=== PATIENT | male | born 1995 | race Caucasian/White ===

== ENCOUNTER 2020-02-10 23:00 | Emergency (ER) | payer OTHER ==
[~2020-02-10] VITALS: Ht 180.3 cm; Wt 70.4 kg
[2020-02-10] MEDS ORDERED: ALBUTEROL 90 MCG/ACT 8GM HFA INHALER INH ONE (23:30)
[2020-02-11 00:38] LABS: BASO # 0.1 10^3/uL (0.0-0.2); BASO % 0.6 % (0.0-1.0); EOS # 0.2 10^3/uL (0.0-0.5); EOS % 2.1 % (0.0-3.0); HEMATOCRIT 45.9 % (42.0-52.0); HEMOGLOBIN 15.7 g/dl (13.5-17.5); LYMPH # 1.9 10^3/uL (1.5-5.0); LYMPH % 24.2 % (24.0-44.0); MEAN CORPUSCULAR HEMOGLOBIN 29.3 pg (27.0-33.0); MEAN CORPUSCULAR HGB CONC 34.2 g/dl (32.0-36.5); MEAN CORPUSCULAR VOLUME 85.6 fl (80.0-96.0); MONO # 0.7 10^3/uL (0.0-0.8); MONO % 8.4 % (0.0-5.0); NEUTROPHILS # 5.1 10^3/uL (1.5-8.5); NEUTROPHILS % 64.6 % (36.0-66.0); PLATELET COUNT, AUTOMATED 318 10^3/uL (150-450); RED BLOOD COUNT 5.36 10^6/uL (4.30-6.10); WHITE BLOOD COUNT 7.9 10^3/uL (4.0-10.0)
[2020-02-11 00:48] LABS: ALBUMIN 4.6 GM/DL (3.2-5.2); ALT/SGPT 23 U/L (12-78); BILIRUBIN,DIRECT 0.2 MG/DL (0.0-0.2); BILIRUBIN,TOTAL 0.6 MG/DL (0.2-1.0); BLOOD UREA NITROGEN 12 MG/DL (7-18); CALCIUM LEVEL 9.4 MG/DL (8.5-10.1); CARBON DIOXIDE LEVEL 27 MEQ/L (21-32); CHLORIDE LEVEL 108 MEQ/L (98-107); GLOMERULAR FILTRATION RATE > 60.0 (>60); GLUCOSE, FASTING 87 MG/DL (70-100); LIPASE 82 U/L (73-393); POTASSIUM SERUM 4.1 MEQ/L (3.5-5.1); SODIUM LEVEL 140 MEQ/L (136-145); TOTAL PROTEIN 7.9 GM/DL (6.4-8.2)
[2020-02-11] MEDS ORDERED: PROAAER10 INH (01:43)
[2020-02-11 02:36] VITALS: BP 140/76
--- NOTE | 2020-02-11 08:13 | REP ---
Portable chest x-ray: Single view. History: Shortness of breath. No comparison study. Findings: The lungs are well inflated and clear. Pleural angles are sharp. Heart size is normal. Pulmonary vasculature is not increased. No significant bony abnormality. Impression: No active disease. Electronically Signed by Ramón Vora MD 02/11/2020 08:05 A
== END 2020-02-11 02:34 | disposition home or self-care (01) ==
LOC: M ED 23:00
DX: J06.9 Acute upper respiratory infection, unspecified (principal)
CPT/HCPCS: 36415; 71045; 80048; 80076; 81001; 83690; 85025; 87486; 87581; 87633; 87798; 87880; 99284; U0002

== ENCOUNTER 2020-04-14 06:40 | Emergency (ER) | payer OTHER ==
[~2020-04-14] VITALS: Ht 175.3 cm; Wt 68.2 kg
[~2020-04-14 06:40] MED LIST: PROAAER10 INH
[2020-04-14] MEDS ORDERED: NS 1,000 ML IV ONE (07:00)
[2020-04-14 07:37] LABS: BASO % 0.7 % (0.0-1.0); EOS # 0.2 10^3/uL (0.0-0.5); EOS % 4.7 % (0.0-3.0); HEMATOCRIT 40.8 % (42.0-52.0); HEMOGLOBIN 13.9 g/dl (13.5-17.5); LYMPH # 1.1 10^3/uL (1.5-5.0); LYMPH % 25.2 % (24.0-44.0); MEAN CORPUSCULAR HEMOGLOBIN 29.7 pg (27.0-33.0); MEAN CORPUSCULAR HGB CONC 34.1 g/dl (32.0-36.5); MEAN CORPUSCULAR VOLUME 87.2 fl (80.0-96.0); MONO # 0.4 10^3/uL (0.0-0.8); MONO % 8.7 % (0.0-5.0); NEUTROPHILS # 2.7 10^3/uL (1.5-8.5); NEUTROPHILS % 60.3 % (36.0-66.0); PLATELET COUNT, AUTOMATED 264 10^3/uL (150-450); RED BLOOD COUNT 4.68 10^6/uL (4.30-6.10); WHITE BLOOD COUNT 4.5 10^3/uL (4.0-10.0)
[2020-04-14 07:58] LABS: ALBUMIN 3.9 GM/DL (3.2-5.2); ALT/SGPT 21 U/L (12-78); BILIRUBIN,DIRECT 0.2 MG/DL (0.0-0.2); BILIRUBIN,TOTAL 0.7 MG/DL (0.2-1.0); BLOOD UREA NITROGEN 11 MG/DL (7-18); CARBON DIOXIDE LEVEL 24 MEQ/L (21-32); CHLORIDE LEVEL 108 MEQ/L (98-107); CREATININE FOR GFR 0.77 MG/DL (0.70-1.30); GLOMERULAR FILTRATION RATE > 60.0 (>60); GLUCOSE, FASTING 96 MG/DL (70-100); LIPASE 51 U/L (73-393); SODIUM LEVEL 140 MEQ/L (136-145); TOTAL PROTEIN 6.6 GM/DL (6.4-8.2)
[2020-04-14 08:54] VITALS: BP 130/74
--- NOTE | 2020-04-14 08:56 | REP ---
Bilateral inguinal canal sonography: History: Right lower quadrant pain and groin pain. Evaluate for hernia. Findings: Transverse and longitudinal images through the inguinal canals bilaterally is performed at rest and with Valsalva. There is no evidence of cyst, mass, abnormal fluid collection, or hernia on either side. Impression: No abnormality noted. No evidence of hernia. Electronically Signed by Ramón Vora MD 04/14/2020 08:47 A
--- NOTE | 2020-04-14 21:25 | ECGEPIP ---
[facility] - ED Test Date: 2020-04-14 Pat Name: CHRISSY MCFARLAND Department: Room: - Gender: Male [place]: BRIAN : 1995 Requested By: LANCE Guerni PA-C Order Number: [id number] Reading MD: Herb De Leon Measurements Intervals [place] Rate: 60 P: 35 [place]: 168 QRS: 45 QRSD: 94 T: 19 QT: 369 QTc: 371 Interpretive Statements SINUS RHYTHM WITH SINUS ARRHYTHMIA NSTTW ABNORMALITIES NO PRIORS FOR COMPARISON Electronically Signed on 04-14-2020 21:25:48 EDT by Herb De Leon
== END 2020-04-14 08:55 | disposition home or self-care (01) ==
LOC: M ED 06:40
DX: R10.2 Pelvic and perineal pain (principal); K62.5 Hemorrhage of anus and rectum; F17.290 Nicotine dependence, other tobacco product, uncomplicated

== ENCOUNTER → 2020-04-21 | Outpatient (REF) | payer OTHER | LOC: M SFHCLERA 10:58 | PROVIDERS: ATTEND Physician Assistant | DX: R10.9 Unspecified abdominal pain (principal); R19.5 Other fecal abnormalities; K92.1 Melena; R11.2 Nausea with vomiting, unspecified ==

== ENCOUNTER 2020-07-20 10:50 | Day surgery (SDC) | payer OTHER ==
[~2020-07-20] VITALS: Ht 177.8 cm; Wt 65.7 kg
[~2020-07-20 10:50] MED LIST changes: +LIDOCAINE 2% 100MG/5ML SDV (FOR ANES.) As Ordered ONE; +NS 1,000 ML IV ONE; +propofoL 200 MG/20 ML VIAL As Ordered ONE
[2020-07-20 12:22] VITALS: BP 155/79
--- NOTE | 2020-08-03 11:36 | ROOR ---
Patient Name: Winston Martines Procedure Date: 07/20/2020 11:22 AM Date of : 1995 Age: 24 Room: [facility] Gender: Male Note Status: Finalized Procedure: Upper Endoscopy + Biopsies Indications: Epigastric abdominal pain, Diarrhea, Nausea with vomiting Providers: Keon Agrawal MD Referring MD: CRHIS SIMPSON MD Requesting Provider: Medicines: Monitored Anesthesia Care Complications: No immediate complications. Procedure: Pre-Anesthesia Assessment: - The heart rate, respiratory rate, oxygen saturations, blood pressure, adequacy of pulmonary ventilation, and response to care were monitored throughout the procedure. The Endoscope was introduced through the mouth, and advanced to the second part of duodenum. The upper GI endoscopy was accomplished without difficulty. The patient tolerated the procedure well. Findings: The Z-line was regular and was found 40 cm from the incisors. No other significant abnormalities were identified in a careful examination of the stomach. Biopsies were taken with a cold forceps in the gastric antrum for Helicobacter pylori testing. The exam of the duodenum was otherwise normal. Biopsies for histology were taken with a cold forceps in the first portion of the duodenum for evaluation of celiac disease. The exam was otherwise without abnormality. Impression: - Z-line regular, 40 cm from the incisors. - The examination was otherwise normal. - Biopsies were taken with a cold forceps for Helicobacter pylori testing. - Biopsies were taken with a cold forceps for evaluation of celiac disease. - The examination was otherwise normal. Recommendation: - Patient has a contact number available for emergencies. The signs and symptoms of potential delayed complications were discussed with the patient. Return to normal activities tomorrow. Written discharge instructions were provided to the patient. - High fiber diet. - Discharge patient to home. - Continue present medications. - Await pathology results. - Telephone GI clinic for pathology results in 1 week. - Return to referring physician. - The findings and recommendations were discussed with the patient. Keon Agrawal MD Keon Agrawal MD 07/20/2020 11:34:53 AM Electronically signed by Keon Agrawal MD Number of Addenda: 0 Note Initiated On: 07/20/2020 11:22 AM Estimated Blood Loss: Estimated blood loss: none.
--- NOTE | 2020-08-03 11:36 | ROOR ---
Patient Name: Winston Martines Procedure Date: 07/20/2020 10:48 AM Date of : 1995 Age: 24 Room: OP02 Gender: Male Note Status: Finalized Procedure: Total Colonoscopy to Cecum + ileoscopy + Bx Indications: Lower abdominal pain, Clinically significant diarrhea of unexplained origin Providers: Keon Agrawal MD Referring MD: CHRIS SIMPSON MD Requesting Provider: Medicines: Monitored Anesthesia Care Complications: No immediate complications. Procedure: Pre-Anesthesia Assessment: - The heart rate, respiratory rate, oxygen saturations, blood pressure, adequacy of pulmonary ventilation, and response to care were monitored throughout the procedure. The Colonoscope was introduced through the anus and advanced to the terminal ileum. The colonoscopy was performed without difficulty. The patient tolerated the procedure well. The quality of the bowel preparation was excellent. Findings: The perianal and digital rectal examinations were normal. Non-bleeding internal hemorrhoids were found during retroflexion. The hemorrhoids were small and Grade I (internal hemorrhoids that do not prolapse). No other significant abnormalities were identified in a careful examination of the remainder of the colon. The exam was otherwise without abnormality on direct and retroflexion views. The terminal ileum appeared normal. Biopsies for histology were taken with a cold forceps from the cecum, left colon and descending colon for evaluation of microscopic colitis. The exam was otherwise without abnormality. Impression: - Non-bleeding internal hemorrhoids. - The examination was otherwise normal on direct and retroflexion views. - The examined portion of the ileum was normal. - The examination was otherwise normal. - Biopsies were taken with a cold forceps from the cecum, left colon and descending colon for evaluation of microscopic colitis. - The exam was otherwise normal to the cecum. Recommendation: - Patient has a contact number available for emergencies. The signs and symptoms of potential delayed complications were discussed with the patient. Return to normal activities tomorrow. Written discharge instructions were provided to the patient. - High fiber diet. - Discharge patient to home. - Continue present medications. - Await pathology results. - Telephone GI clinic for pathology results in 1 week. - Repeat colonoscopy at age 48 for screening purposes. - Return to referring physician. - The findings and recommendations were discussed with the patient. Keon Agrawal MD Keon Agrawal MD 07/20/2020 11:51:29 AM Electronically signed by Keon Agrawal MD Number of Addenda: 0 Note Initiated On: 07/20/2020 10:48 AM Estimated Blood Loss: Estimated blood loss: none.
== END 2020-07-20 12:23 | disposition home or self-care (01) ==
LOC: M OPP 10:50
PROVIDERS: ATTEND Internal Medicine Gastroenterology
DX: K64.0 First degree hemorrhoids (principal); R10.30 Lower abdominal pain, unspecified; R19.7 Diarrhea, unspecified; R11.2 Nausea with vomiting, unspecified; R10.13 Epigastric pain; Z87.891 Personal history of nicotine dependence

== ENCOUNTER 2021-04-16 10:51 | Emergency (ER) | payer OTHER ==
[~2021-04-16] VITALS: Ht 175.3 cm; Wt 71.7 kg
[~2021-04-16 10:51] MED LIST changes: -LIDOCAINE 2% 100MG/5ML SDV (FOR ANES.) As Ordered ONE; -NS 1,000 ML IV ONE; -propofoL 200 MG/20 ML VIAL As Ordered ONE
[2021-04-16] MEDS ORDERED: ACET500P3 PO (10:58)
[2021-04-16] MEDS ORDERED: BENA25CA4 PO (10:58)
[2021-04-16] MEDS ORDERED: HYDR25OIN TOP (12:17)
[2021-04-16 12:30] VITALS: BP 110/80
== END 2021-04-16 12:31 | disposition home or self-care (01) ==
LOC: M ED 10:51
DX: R22.31 Localized swelling, mass and lump, right upper limb (principal); W57.XXXA Bitten or stung by nonvenomous insect and other nonvenomous arthropods, initial encounter; Y92.89 Other specified places as the place of occurrence of the external cause